=== PATIENT | male | born 1995 | race Caucasian/White ===

== ENCOUNTER 2017-10-12 02:56 | Inpatient (IN) | payer BC, OTHER ==
[~2017-10-12] VITALS: Ht 175.3 cm; Wt 71.6 kg
[2017-10-12] MEDS ORDERED: ASPIRIN 325 MG TABLET PO STA (03:09)
[2017-10-12] MEDS ORDERED: ASPIRIN 325 MG TABLET ONE (03:26)
[2017-10-12 03:35] LABS: BASOPHILS # (AUTO) 0.03 x10^3/uL (0-0.1); BASOPHILS % (AUTO) 0 % (0-1); EOSINOPHILS # (AUTO) 0.18 x10^3/uL (0-0.4); EOSINOPHILS % (AUTO) 2 % (1-7); LYMPHOCYTES # (AUTO) 2.34 x10^3/uL (1-3.4); LYMPHOCYTES % (AUTO) 20 % (22-44); MD NO; MEAN CORPUSCULAR HEMOGLOBIN 30.5 pg (27.5-34.5); MEAN CORPUSCULAR HGB CONC 34.2 g/dL (33.2-36.2); MEAN CORPUSCULAR VOLUME 89.3 fL (81-97); MEAN PLATELET VOLUME 8.6 fL (7.4-10.4); MONOCYTES # (AUTO) 1.23 x10^3/uL (0.2-0.8); MONOCYTES % (AUTO) 10 % (2-9); NEUTROPHILS # (AUTO) 8.07 x10^3/uL (1.8-6.8); NEUTROPHILS % (AUTO) 68 % (42-75); PLATELET COUNT 193 x10^3/uL (130-400); RED BLOOD COUNT 4.92 x10^6/uL (4.38-5.82); RED CELL DISTRIBUTION WIDTH 13.3 % (9.4-14.8)
[2017-10-12] MEDS ORDERED: TICAGRELOR 90 MG TABLET ONE (03:38)
[2017-10-12] MEDS ORDERED: FENTANYL PF 100 MCG/2ML ONE (03:38)
[2017-10-12] MEDS ORDERED: VERAPAMIL 2.5 MG/ML, 2ML ONE (03:39)
[2017-10-12] MEDS ORDERED: NITROGLYCERIN 5 MG/ML, 10ML ONE (03:39)
[2017-10-12] MEDS ORDERED: BIVALIRUDIN 250 MG ONE (03:39)
[2017-10-12] MEDS ORDERED: MIDAZOLAM 1 MG/ML, 2ML ONE (03:39)
[2017-10-12] MEDS ORDERED: HEPARIN 1,000 UNITS/ML, 10ML ONE (03:39)
[2017-10-12] MEDS ORDERED: LIDOCAINE 2%, 20ML ONE (03:39)
[2017-10-12 03:42] LABS: INTERNATIONAL NORMALIZED RATIO 0.99 (0.93-1.1); PROTHROMBIN TIME 10.2 Seconds (9.6-11.5)
[2017-10-12] MEDS ORDERED: ONDANSETRON 2MG/ML, 2ML IVPush PRN (04:00)
[2017-10-12] MEDS ORDERED: MORPHINE SULFATE 4 MG/ML, 1ML IVPush PRN ×3 (04:00→14:30)
[2017-10-12] MEDS ORDERED: ZOLPIDEM 5MG TABLET PO PRN (04:30)
[2017-10-12 05:26] VITALS: BP 107/71
[2017-10-12 05:50] VITALS: BP 107/71
[2017-10-12] MEDS ORDERED: METOPROLOL TARTRATE 25 MG TABLET PO SCH (06:00)
[2017-10-12] MEDS: KETOROLAC 30 MG/1 ML IVPush SCH ×2 (06:22→21:01)
[2017-10-12] MEDS: ENALAPRIL 2.5MG TABLET PO SCH (09:00)
[2017-10-12] MEDS ORDERED: METOPROLOL SUCCINATE 25 MG TAB.ER.24H PO SCH (18:00)
[2017-10-12 20:37] VITALS: BP 117/81
[2017-10-12] MEDS ORDERED: OSELTAMIVIR 75 MG CAPSULE PO ONE (21:00)
[2017-10-12 21:37] LABS: AMPHETAMINE SCREEN, URINE Negative (Negative); BARBITURATE SCREEN, URINE Negative (Negative); BENZODIAZEPINE SCREEN, URINE Positive (Negative); CANNABINOID SCREEN, URINE Negative (Negative); COCAINE SCREEN, URINE Negative (Negative); METHADONE SCREEN, URINE Negative (Negative); OPIATE SCREEN, URINE Negative (Negative)
[2017-10-13 02:00] VITALS: BP 99/69
[2017-10-13 05:29] LABS: CHOL/HDL RATIO 6.1; LDL/HDL RATIO 4.2 (0.5-3.0)
[2017-10-13] MEDS ORDERED: ASPIRIN 325 MG TABLET PO SCH (06:00)
[2017-10-13] MEDS: ENALAPRIL 2.5MG TABLET PO SCH (08:10)
[2017-10-13 08:12] VITALS: BP 111/75
[2017-10-13] MEDS ORDERED: ENAL2.5T PO (09:56)
[2017-10-13] MEDS ORDERED: ASPI325T17 PO (09:56)
[2017-10-13] MEDS ORDERED: METO25TA91 PO (09:56)
== END 2017-10-13 12:40 | disposition home or self-care (01) | DRG 281 ==
LOC: ED 04:04 → EDIP 04:05 → CCU 04:36 → 5SO 16:34
PROVIDERS: ADMIT Internal Medicine Cardiovascular Disease; ATTEND Internal Medicine Cardiovascular Disease
PROC: 4A023N7 Measurement of Cardiac Sampling and Pressure, Left Heart, Percutaneous Approach (ICD-10-PCS; principal; 2017-10-12)
PROC: B2111ZZ Fluoroscopy of Multiple Coronary Arteries using Low Osmolar Contrast (ICD-10-PCS; 2017-10-12)
PROC: B2151ZZ Fluoroscopy of Left Heart using Low Osmolar Contrast (ICD-10-PCS; 2017-10-12)
DX: I21.29 ST elevation (STEMI) myocardial infarction involving other sites (principal); I42.9 Cardiomyopathy, unspecified; I51.81 Takotsubo syndrome; B34.9 Viral infection, unspecified; F12.90 Cannabis use, unspecified, uncomplicated; F17.210 Nicotine dependence, cigarettes, uncomplicated; I34.0 Nonrheumatic mitral (valve) insufficiency; Z79.82 Long term (current) use of aspirin
CPT/HCPCS: 36415; 71045; 80047; 80061; 80307; 84484; 85025; 85610; 85730; 87081; 93005; 93306; 93458; 99156; 99157; 99291; C1760; C1894; J0583; J1644; J1885; J2250; J3010; J3490; Q9967

== ENCOUNTER → 2017-11-22 | Outpatient (CLI) | payer BC ==
[~2017-11-22] MED LIST: ASPI325T17 PO; ENAL2.5T PO; METO25TA91 PO
== END | disposition home or self-care (01) ==
LOC: CVU 08:21
PROVIDERS: ATTEND Internal Medicine Cardiovascular Disease
DX: I37.1 Nonrheumatic pulmonary valve insufficiency (principal); F12.90 Cannabis use, unspecified, uncomplicated
CPT/HCPCS: 93306